=== PATIENT | female | born 2000 | race Caucasian/White ===

== ENCOUNTER 2020-04-21 22:30 | Emergency (ER) | payer BC | END 2020-04-21 23:38 | disposition left against medical advice (07) | LOC: JD.ED 22:30 | DX: Z53.21 Procedure and treatment not carried out due to patient leaving prior to being seen by health care provider (principal) ==

== ENCOUNTER 2021-07-09 20:04 | Emergency (ER) | payer BC ==
[2021-07-09 20:14] VITALS: BP 101/84; PULSE 50
--- NOTE | 2021-07-09 20:46 | EDM.PDOCBH ---
ED HPI GENERAL MEDICAL PROBLEM - General Chief Complaint: Behavioral/Psych Stated Complaint: BOTH HAND SHAKING/DYSPHAGIA Time Seen by Provider: 07/09/21 20:10 Source of Information: Reports: Patient, Family History Limitations: Reports: No Limitations - History of Present Illness INITIAL COMMENTS - FREE TEXT/NARRATIVE: The patient presents with bilateral hand shaking and urinary incontinence. The patient said the shaking started today. She was walking out to her car and she was incontinent of urine twice. She has no pain with urination. She said this has happened before when she was on spironolactone for excessive hair growth. She is no longer on that medication. She has a headache. She has no numbness or weakness. She does feel some tingling in her hands at times. She has no trouble with blood sugars in the past. She admits she is under weight and trying to gain weight. She has had a few episodes where she passed out in the past and had some shaking after that almost like seizure like. This happened once this summer. She has no fever, chills, cough, chest pain, shortness of breath, abdominal pain, nausea or vomiting. Onset: Gradual Duration: Hour(s): Location: Reports: Upper Extremity, Left, Upper Extremity, Right Quality: Reports: Other (tingling and shaking) Severity: Mild Improves with: Reports: None Worsens with: Reports: None Associated Symptoms: Reports: No Other Symptoms - Related Data Allergies Allergy/AdvReac Type Severity Reaction Status Date / Time No Known Allergies Allergy Verified 07/09/21 20:14 Home Meds: Home Meds FLUoxetine [PROzac] 10 mg PO BEDTIME #30 cap 07/09/21 [Rx] Past Medical History - Past Health History Medical/Surgical History: Denies Medical/Surgical History Social & Family History - Tobacco Use Tobacco Use Status *Q: Never Tobacco User - Recreational Drug Use Recreational Drug Use: No ED ROS GENERAL - Review of Systems Review Of Systems: See Below Constitutional: Reports: No Symptoms HEENT: Reports: No Symptoms Respiratory: Reports: No Symptoms Cardiovascular: Reports: No Symptoms Endocrine: Reports: No Symptoms GI/Abdominal: Reports: No Symptoms : Reports: No Symptoms Musculoskeletal: Reports: No Symptoms Neurological: Reports: Tingling (both hands and shaking) Psychiatric: Reports: No Symptoms ED EXAM, BEHAVIORAL HEALTH - Physical Exam Exam: See Below Exam Limited By: No Limitations General Appearance: Alert, No Apparent Distress Ears: Normal External Exam Nose: Normal Inspection Head: Atraumatic, Normocephalic Neck: Normal Inspection Respiratory/Chest: No Respiratory Distress, Lungs Clear, Normal Breath Sounds Cardiovascular: Regular Rate, Rhythm, No Edema, No Murmur GI/Abdominal: Soft, Non-Tender, No Organomegaly, No Mass Back Exam: Normal Inspection Extremities: Normal Inspection COURSE, BEHAVIORAL HEALTH COMP - Course Vital Signs: Last Vital Signs Temp 97.4 F 07/09/21 20:10 Pulse 50 L 07/09/21 20:10 Resp 18 07/09/21 20:10 BP 101/84 07/09/21 20:10 Pulse Ox 97 07/09/21 20:10 Orders, Labs, Meds: Active Orders 24 hr Category Date Time Status Cardiac Monitoring [RC] . DIRECTED Care 07/09/21 20:33 Active Head wo Cont [CT] Stat Exams 07/09/21 20:34 Taken Laboratory Tests 07/09/21 07/09/21 07/09/21 Range/Units 20:50 20:50 20:50 WBC 6.84 (3.98-10.04) K/mm3 RBC 4.57 (3.98-5.22) M/mm3 Hgb 12.5 (11.2-15.7) gm/dl Hct 38.0 (34.1-44.9) % MCV 83.2 (79.4-94.8) fl MCH 27.4 (25.6-32.2) pg MCHC 32.9 (32.2-35.5) g/dl RDW Std Deviation 41.1 (36.4-46.3) fL Plt Count 362 (182-369) K/mm3 MPV 8.5 L (9.4-12.3) fl Neut % (Auto) 68.3 (34.0-71.1) % Lymph % (Auto) 21.8 (19.3-51.7) % [place] % (Auto) 8.8 (4.7-12.5) % Eos % (Auto) 0.4 L (0.7-5.8) Baso % (Auto) 0.6 (0.1-1.2) % Neut # (Auto) 4.67 (1.56-6.13) K/mm3 Lymph # (Auto) 1.49 (1.18-3.74) K/mm3 [place] # (Auto) 0.60 H (0.24-0.36) K/mm3 Eos # (Auto) 0.03 L (0.04-0.36) K/mm3 Baso # (Auto) 0.04 (0.01-0.08) K/mm3 Sodium 138 (136-145) mEq/L Potassium 3.7 (3.5-5.1) mEq/L Chloride 102 (98-107) mEq/L Carbon Dioxide 25 (21-32) mEq/L Anion Gap 14.7 (5-15) BUN 14 (7-18) mg/dL Creatinine 0.9 (0.55-1.02) mg/dL Est Cr Clr Drug Dosing 71.44 mL/min Estimated GFR (MDRD) > 60 (>60) mL/min BUN/Creatinine Ratio 15.6 (14-18) Glucose 146 H (70-99) mg/dL Hemoglobin A1c ( - 5.6) % Calcium 8.8 (8.5-10.1) mg/dL Magnesium 2.1 (1.8-2.4) mg/dL Total Bilirubin 0.6 (0.2-1.0) mg/dL AST 16 (15-37) U/L ALT 19 (14-59) U/L Alkaline Phosphatase 51 (46-116) U/L Total Protein 7.5 (6.4-8.2) g/dl Albumin 4.1 (3.4-5.0) g/dl Globulin 3.4 gm/dL Albumin/Globulin Ratio 1.2 (1-2) Amylase 56 (25-115) U/L Lipase 153 (73-393) U/L TSH 3rd Generation 1.287 (0.358-3.74) uIU/mL Urine Color (Yellow) Urine Appearance (Clear) Urine pH (5.0-8.0) Ur Specific [place] (1.005-1.030) Urine Protein (Negative) Urine Glucose (UA) (Negative) Urine Ketones (Negative) Urine Occult Blood (Negative) Urine Nitrite (Negative) Urine Bilirubin (Negative) Urine Urobilinogen (0.2-1.0) Ur Leukocyte Esterase (Negative) Urine RBC (0-5) /hpf Urine WBC (0-5) /hpf Ur Squamous Epith Cells (0-5) /hpf Urine Bacteria (FEW) /hpf Urine Mucus (FEW) /hpf 07/09/21 07/09/21 Range/Units 20:50 21:07 WBC (3.98-10.04) K/mm3 RBC (3.98-5.22) M/mm3 Hgb (11.2-15.7) gm/dl Hct (34.1-44.9) % MCV (79.4-94.8) fl MCH (25.6-32.2) pg MCHC (32.2-35.5) g/dl RDW Std Deviation (36.4-46.3) fL Plt Count (182-369) K/mm3 MPV (9.4-12.3) fl Neut % (Auto) (34.0-71.1) % Lymph % (Auto) (19.3-51.7) % [place] % (Auto) (4.7-12.5) % Eos % (Auto) (0.7-5.8) Baso % (Auto) (0.1-1.2) % Neut # (Auto) (1.56-6.13) K/mm3 Lymph # (Auto) (1.18-3.74) K/mm3 [place] # (Auto) (0.24-0.36) K/mm3 Eos # (Auto) (0.04-0.36) K/mm3 Baso # (Auto) (0.01-0.08) K/mm3 Sodium (136-145) mEq/L Potassium (3.5-5.1) mEq/L Chloride (98-107) mEq/L Carbon Dioxide (21-32) mEq/L Anion Gap (5-15) BUN (7-18) mg/dL Creatinine (0.55-1.02) mg/dL Est Cr Clr Drug Dosing mL/min Estimated GFR (MDRD) (>60) mL/min BUN/Creatinine Ratio (14-18) Glucose (70-99) mg/dL Hemoglobin A1c 5.2 ( - 5.6) % Calcium (8.5-10.1) mg/dL Magnesium (1.8-2.4) mg/dL Total Bilirubin (0.2-1.0) mg/dL AST (15-37) U/L ALT (14-59) U/L Alkaline Phosphatase (46-116) U/L Total Protein (6.4-8.2) g/dl Albumin (3.4-5.0) g/dl Globulin gm/dL Albumin/Globulin Ratio (1-2) Amylase (25-115) U/L Lipase (73-393) U/L TSH 3rd Generation (0.358-3.74) uIU/mL Urine Color Yellow (Yellow) Urine Appearance Clear (Clear) Urine pH 7.0 (5.0-8.0) Ur Specific [place] 1.015 (1.005-1.030) Urine Protein Negative (Negative) Urine Glucose (UA) Negative (Negative) Urine Ketones 1+ H (Negative) Urine Occult Blood Trace-lysed H (Negative) Urine Nitrite Negative (Negative) Urine Bilirubin Negative (Negative) Urine Urobilinogen 0.2 (0.2-1.0) Ur Leukocyte Esterase Negative (Negative) Urine RBC 0-5 (0-5) /hpf Urine WBC 0-5 (0-5) /hpf Ur Squamous Epith Cells 0-5 (0-5) /hpf Urine Bacteria Occasional (FEW) /hpf Urine Mucus Not seen (FEW) /hpf Re-Assessment/Re-Exam: I ordered a CT of her head and labs. The CT of her head looks good. Her CBC looks good. Her CMP showed an elevated BS of 146. I ordered a HGB A1C and that was normal. Her amylase, lipase and TSH were normal. The patient did not eat today. 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 I feel she may have been hypoglycemic. She also has been having anxiety and not eating well. She says she does not think she is over weight but under weight and is trying to gain weight. She also is still having bed wetting and urinary incontinence. She is seeing Urology in September. I will try her on some prozac for the anxiety and eating. Departure - Departure Time of Disposition: 10:20 Disposition: Home, Self-Care 01 Condition: Good Clinical Impression: Shaking, Anxiety Urinary incontinence Qualifiers: Urinary Incontinence type: unspecified incontinence Qualified Code(s): R32 - Unspecified urinary incontinence - Discharge Information *PRESCRIPTION DRUG MONITORING PROGRAM REVIEWED*: Not Applicable *COPY OF PRESCRIPTION DRUG MONITORING REPORT IN PATIENT JOHNNY: Not Applicable Prescriptions: FLUoxetine [PROzac] 10 mg PO BEDTIME #30 cap Referrals: Noreen Engle PA-C [Primary Care Provider] - 1 Week Forms: ED Department Discharge Additional Instructions: Try to eat 3 meals per day that contain protein, fat and some carbs. Take the prozac 10mg daily. Follow up with Noreen within a week. Please return if you are worse. Sepsis Event Note (ED) - Focused Exam Vital Signs: Vital Signs Temp Pulse Resp BP Pulse Ox 07/09/21 20:10 97.4 F 50 L 18 101/84 97 - My Orders Last 24 Hours: My Active Orders 07/09/21 20:33 Cardiac Monitoring [RC] . DIRECTED 07/09/21 20:34 Head wo Cont [CT] Stat - Assessment/Plan Last 24 Hours: My Active Orders 07/09/21 20:33 Cardiac Monitoring [RC] . DIRECTED 07/09/21 20:34 Head wo Cont [CT] Stat
[2021-07-09 21:52] LABS: HEMOGLOBIN A1C 5.2 %
--- NOTE | 2021-07-10 07:44 | CT ---
Head CT Technique: Multiple axial sections through the brain were obtained. Intravenous contrast was not utilized. Reconstructed coronal and sagittal images were obtained. Comparison: Prior head CT study of 06/28/16. Findings: Ventricles along with basal cisterns and sulci over the convexities appear within normal limits for the patient's age. No abnormal parenchymal densities are seen. No evidence of intracranial hemorrhage is seen. No midline shift or mass-effect is seen. Bone window settings were reviewed. Visualized mastoid sinuses and paranasal sinuses show nothing acute. No acute calvarial abnormality is appreciated. Impression: 1. Nothing acute is seen on noncontrast head CT study. 2. No change from previous exam is available. Diagnostic code #1 I agree with preliminary report from [facility], finalized on 07/09/21, 10:21 PM CDT, code 1
== END 2021-07-09 22:26 | disposition home or self-care (01) ==
LOC: JD.ED 20:04
DX: R32 Unspecified urinary incontinence (principal); F41.9 Anxiety disorder, unspecified
CPT/HCPCS: 36415; 70450; 70450-26; 80053; 81001; 82150; 83036; 83690; 83735; 84443; 85025; 99284-25